=== PATIENT | male | born 1985 | race Caucasian/White ===

== ENCOUNTER 2016-12-09 23:49 | Emergency (ER) | payer BC ==
--- NOTE | 2016-12-10 00:06 | Emergency Department Record ---
History of Present Illness - General Chief complaint: Male Urogenital Problem Stated complaint: TESTICLE PAIN Time Seen by Provider: 12/09/16 23:56 Source: Patient Mode of Arrival: Ambulatory Limitations: No limitations - History of Present Illness Initial comments: 31 yo male presents to ED with a CC of right sided testicular pain that began 2- 3 hours ago, relatively sudden onset following intercourse tonight. Patient denies any fevers, chills, or dysuria symptoms. Patient denies health problems at his baseline. MD Complaint: Testicle pain Onset/Timin -: Hour(s) Location: Right testicle Radiation: None Severity: Moderate Quality: Aching Consistency: Constant Improves with: None Worsens with: None Reports: Denies other symptoms - Related Data Sexually active: Yes Allergies Allergy/AdvReac Type Severity Reaction Status Date / Time No Known Allergies Allergy Unverified 06/25/16 10:01 Review of Systems Constitutional: Denies: Chills, Fever, Malaise, Night sweats Eyes: Denies: Eye discharge, Eye pain ENT: Denies: Congestion, Ear pain, Epistaxis Respiratory: Denies: Cough, Dyspnea Cardiovascular: Denies: Chest pain, Dyspnea on exertion Endocrine: Denies: Fatigue, Heat or cold intolerance Gastrointestinal: Denies: Abdominal pain, Nausea, Vomiting Genitourinary: Reports: Testicular pain. Denies: Dysuria, Frequency, Hematuria , Incontinence Musculoskeletal: Denies: Arthralgia, Back pain Skin: Denies: Bruising, Change in color Neurological: Denies: Abnormal gait, Confusion, Headache, Numbness, Seizure Psychiatric: Denies: Anxiety Hematological/Lymphatic: Denies: Anemia, Blood Clots Past Medical History - SOCIAL HISTORY Smoking Status: Never smoker Drug Use: None - RESPIRATORY Hx Respiratory Disorders: No - CARDIOVASCULAR Hx Cardio Disorders: No - NEURO Hx Neuro Disorders: No - GI Hx GI Disorders: No - Hx Genitourinary Disorders: No - ENDOCRINE Hx Endocrine Disorders: No - MUSCULOSKELETAL Hx Musculoskeletal Disorders: No - PSYCH Hx Psych Problems: No - HEMATOLOGY/ONCOLOGY Hx Hematology/Oncology Disorders: No Physical Exam - General General Appearance: Alert, Oriented x3, Cooperative, No acute distress Limitations: No limitations - Head Head exam: Atraumatic, Normocephalic, Normal inspection Head exam detail: negative: Abrasion, Contusion, Olivas's sign, General tenderness, Hematoma, Laceration - Eye Eye exam: Normal appearance. negative: Conjunctival injection, Periorbital swelling, Periorbital tenderness, Scleral icterus - ENT Ear exam: negative: Auricular hematoma, Auricular trauma Nasal Exam: negative: Active bleeding, Discharge, Dried blood, Sinus tenderness Mouth exam: negative: Drooling, Laceration, Muffled voice, Tongue elevation - Neck Neck exam: Normal inspection. negative: Tenderness - Respiratory Respiratory exam: Normal lung sounds bilaterally. negative: Respiratory distress, Rhonchi, Stridor, Wheezes - Cardiovascular Cardiovascular Exam: Regular rate, Normal rhythm, Normal heart sounds - GI/Abdominal GI/Abdominal exam: Soft. negative: Rebound, Rigid, Tenderness - Rectal Rectal exam: Deferred - exam: Testicular tenderness, Other (uncircumsized penis with mild-moderate TTP over the right testicle, no hernia palpated on examination.). negative: Scrotal swelling, Urethral discharge - Extremities Extremities exam: Normal inspection. negative: Calf tenderness, Pedal edema, Tenderness - Back Back exam: Denies: CVA tenderness (R), CVA tenderness (L) - Neurological Neurological exam: Alert, Normal gait, Oriented X3 - Psychiatric Psychiatric exam: Normal affect, Normal mood - Skin Skin exam: Normal color. negative: Abrasion Type of lesion: negative: abrasion Course Vital Signs 12/09/16 23:56 Temperature 97.7 F Pulse Rate [ 78 Pulse Ox Probe] Respiratory 16 Rate Blood Pressure 140/81 [Left Arm] Pulse Ox 98 - Reevaluation(s) Reevaluation #1: 12/10/16 00:04 Case was discussed with Dr. Mejias at [facility], will accept transfer by private car to [facility] ED (faster than arranging ambulance) for US evaluation to exclude torsion. Disposition Disposition: Transfer Clinical Impression: Pain in right testicle Disposition: Acute Care Hospital Transfer Transfer To: [facility] Reason For Transfer: Scrotal US Accepting Physician: Randell Time Discussed w/Accepting Physician: 00:07 Condition: (2) Stable Forms: Patient Portal Access Time of Disposition: 00:07
== END 2016-12-10 00:17 | disposition short-term general hospital (02) ==
LOC: ER 23:49
DX: N50.811 Right testicular pain (principal)
CPT/HCPCS: 99283